=== PATIENT | male | born 1985 | race Two or more races ===

== ENCOUNTER 2017-12-16 21:30 | Emergency (ER) | payer OTHER ==
[~2017-12-16] VITALS: Ht 182.9 cm; Wt 140.6 kg
[2017-12-16 22:00] VITALS: BP 133/81
== END 2017-12-17 00:45 | disposition home or self-care (01) ==
LOC: ER 21:30
DX: S69.82XA Other specified injuries of left wrist, hand and finger(s), initial encounter (principal); I48.91 Unspecified atrial fibrillation; W21.09XA Struck by other hit or thrown ball, initial encounter; Y93.89 Activity, other specified; Y99.8 Other external cause status; Y92.89 Other specified places as the place of occurrence of the external cause
CPT/HCPCS: 73140